=== PATIENT | female | born 1950 | race Caucasian/White ===

== ENCOUNTER 2019-09-19 17:31 | Emergency (ER) | payer OTHER, MEDICAID ==
[~2019-09-19] VITALS: Ht 160 cm; Wt 79.4 kg
[2019-09-19] MEDS ORDERED: HYDROCHLOROTHIA25 M2 PO (17:45)
[2019-09-19] MEDS ORDERED: LIPITOR 10 MG10 M1 PO (17:45)
[2019-09-19] MEDS ORDERED: ASA81BEC PO (17:45)
[2019-09-19] MEDS ORDERED: EFFER-K 10 MEQ10 ME1 PO (17:45)
[2019-09-19] MEDS ORDERED: METFORMIN HCL500 M3 PO (17:45)
[2019-09-19] MEDS ORDERED: XANAX 0.5 MG0.5 MG PO (17:46)
[2019-09-19] MEDS ORDERED: AMBIEN5 MG PO (17:46)
[2019-09-19] MEDS ORDERED: PRESERVISION T1 EACH PO (17:46)
[2019-09-19] MEDS ORDERED: PROTONIX 20 MG20 MG PO (17:47)
[2019-09-19 18:44] LABS: ABSOLUTE BASOPHILS 0.1 thou/uL (0.0-0.2); ABSOLUTE EOSINOPHILS 0.2 thou/uL (0.0-0.7); ABSOLUTE LYMPHOCYTES 2.9 thou/uL (0.8-5.3); ABSOLUTE MONOCYTES 0.8 thou/uL (0.0-1.2); ABSOLUTE NEUTROPHILS 6.1 thou/uL (1.6-8.1); BASOPHILS 1.1 %; EOSINOPHILS 2.2 %; HEMATOCRIT 37.5 % (37.0-47.0); HEMOGLOBIN 12.4 gm/dL (12.0-15.0); LYMPHOCYTES 28.9 %; MCHC 33.1 g/dL (28.0-37.0); MCV 84.4 fL (80.0-100.0); MONOCYTES 7.6 %; MPV 7.9 fl. (7.2-11.1); NUCLEATED RBCS 0 /100WBC; PLATELET COUNT* 327 thou/uL (150-400); POLYS 60.2 %; RBC 4.44 mil/uL (4.20-5.00); RDW-CV 14.8 % (10.5-14.5); WBC 10.1 thou/uL (4.0-11.0)
[2019-09-19 18:50] LABS: CALCIUM 9.2 mg/dL (8.5-10.1); CREATININE 1.2 mg/dL (0.6-1.3); POTASSIUM 4.2 mmol/L (3.5-5.1)
[2019-09-19 18:55] LABS: TOTAL BILIRUBIN 0.5 mg/dL (<0.1-1.0); TOTAL PROTEIN 7.8 g/dL (6.4-8.2)
[2019-09-19] MEDS ORDERED: MEDROLDOSEPACK PO (20:32)
[2019-09-19] MEDS ORDERED: TYLENOL WITH CO1 TA1 PO (20:32)
[2019-09-19] MEDS ORDERED: CYCLOBENZAPRINE5 MG PO (20:32)
[2019-09-19] MEDS ORDERED: LIDODERM1 EACH TOP (20:32)
[2019-09-19 20:41] VITALS: BP 107/62
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
== END 2019-09-19 20:41 | disposition home or self-care (01) ==
LOC: M.ERS 17:31
PROVIDERS: Physician Assistant
DX: M54.2 Cervicalgia (principal); R51 Headache; R42 Dizziness and giddiness